=== PATIENT | male | born 1955 | race Caucasian/White ===

== ENCOUNTER 2017-11-22 15:25 | Outpatient (CLI) | payer OTHER | END 2017-11-22 15:26 | disposition home or self-care (01) | LOC: BICULT 15:25 | PROVIDERS: ATTEND Internal Medicine Infectious Disease | DX: R32 Unspecified urinary incontinence (principal) | CPT/HCPCS: 76856 ==

== ENCOUNTER 2019-12-11 09:50 | Day surgery (SDC) | payer OTHER ==
[~2019-12-11 09:50] MED LIST: Atropine Sulfate 0.25 MG in Sodium Chloride 0.9% 50 ML IVPB SCH; Fluorouracil 900 MG in Sodium Chloride 0.9% 50 ML IVPB SCH; Irinotecan 300 MG in Sodium Chloride 0.9% 500 ML IVPB SCH; Leucovorin Calcium 50 MG in Sodium Chloride 0.9% 500 ML IVPB SCH; Palonosetron HCl 0.25 MG in Sodium Chloride 0.9% 50 ML IVPB SCH; Sodium Chloride 0.9% 20 ML ONE
[2019-12-11 11:34] VITALS: BP 149/69; TEMP 97.9
== END 2019-12-11 15:01 | disposition home or self-care (01) ==
LOC: ONC/OP 09:50
PROVIDERS: ATTEND Internal Medicine Hematology & Oncology
DX: Z51.11 Encounter for antineoplastic chemotherapy (principal); C20 Malignant neoplasm of rectum; Z88.0 Allergy status to penicillin
CPT/HCPCS: 36415; 80053; 82248; 82378; 83615; 84100; 84550; 96367; 96375; 96413; 96417; J0461; J0640; J1100; J2469; J7050; J9190; J9206

== ENCOUNTER 2020-01-01 10:12 | Day surgery (SDC) | payer OTHER ==
[~2020-01-01 10:12] MED LIST changes: -Sodium Chloride 0.9% 20 ML ONE
[2020-01-01] MEDS ORDERED: Sodium Chloride 0.9% 20 ML ONE ×2 (10:28→10:36)
[2020-01-01 11:36] VITALS: BP 179/77; TEMP 98.5
[2020-01-01] MEDS ORDERED: FLU VACC QS2019-20(6MOS UP)/PF 60 MCG/0.5 ML SYRINGE IM ONE (12:45)
== END 2020-01-01 15:41 | disposition home or self-care (01) ==
LOC: ONC/OP 10:12
PROVIDERS: ATTEND Internal Medicine Hematology & Oncology
DX: Z51.11 Encounter for antineoplastic chemotherapy (principal); C20 Malignant neoplasm of rectum; Z88.0 Allergy status to penicillin
CPT/HCPCS: 96367; 96375; 96413; 96415; 96416; J0461; J0640; J1100; J2469; J7050; J9190; J9206

== ENCOUNTER 2020-01-22 09:31 | Day surgery (SDC) | payer OTHER ==
[2020-01-22] MEDS ORDERED: Sodium Chloride 0.9% 20 ML ONE (09:40)
[2020-01-22 10:05] VITALS: BP 96/51; TEMP 97.6
[2020-01-22] MEDS ORDERED: Sodium Chloride 0.9% 10 ML ONE (11:55)
== END 2020-01-22 13:45 | disposition home or self-care (01) ==
LOC: ONC/OP 09:31
PROVIDERS: ATTEND Internal Medicine Hematology & Oncology
DX: Z51.11 Encounter for antineoplastic chemotherapy (principal); C20 Malignant neoplasm of rectum; Z88.0 Allergy status to penicillin
CPT/HCPCS: 36415; 80053; 82248; 82378; 83615; 84100; 84550; 96367; 96375; 96413; 96416; 96417; J0461; J0640; J1100; J2469; J7030; J9190; J9206

== ENCOUNTER 2020-02-19 08:56 | Day surgery (SDC) | payer OTHER ==
[2020-02-19] MEDS ORDERED: Sodium Chloride 0.9% 20 ML ONE (09:20)
[2020-02-19 10:25] VITALS: BP 178/84; TEMP 97.8
== END 2020-02-19 13:55 | disposition home or self-care (01) ==
LOC: ONC/OP 08:56
PROVIDERS: ATTEND Internal Medicine Hematology & Oncology
DX: Z51.11 Encounter for antineoplastic chemotherapy (principal); C20 Malignant neoplasm of rectum; Z88.0 Allergy status to penicillin
CPT/HCPCS: 96367; 96375; 96413; 96415; 96416; 96417; J0461; J0640; J1100; J2469; J7030; J9190; J9206

== ENCOUNTER 2020-03-04 10:41 | Day surgery (SDC) | payer OTHER ==
[2020-03-04] MEDS ORDERED: Sodium Chloride 0.9% 30 ML ONE (11:05)
[2020-03-04 11:09] VITALS: BP 171/85; TEMP 98.5
== END 2020-03-04 17:02 | disposition home or self-care (01) ==
LOC: ONC/OP 10:41
PROVIDERS: ATTEND Internal Medicine Hematology & Oncology
DX: Z51.11 Encounter for antineoplastic chemotherapy (principal); C20 Malignant neoplasm of rectum; Z88.0 Allergy status to penicillin
CPT/HCPCS: 96367; 96375; 96413; 96416; 96417; J0461; J0640; J1100; J1642; J2469; J7030; J9190; J9206

== ENCOUNTER 2020-03-25 09:53 | Day surgery (SDC) | payer OTHER ==
[2020-03-25] MEDS ORDERED: Sodium Chloride 0.9% 20 ML ONE ×2 (10:08→11:01)
== END 2020-03-25 13:40 | disposition home or self-care (01) ==
LOC: ONC/OP 09:53
PROVIDERS: ATTEND Internal Medicine Hematology & Oncology
DX: Z51.11 Encounter for antineoplastic chemotherapy (principal); C20 Malignant neoplasm of rectum; Z79.84 Long term (current) use of oral hypoglycemic drugs; Z79.899 Other long term (current) drug therapy; Z88.0 Allergy status to penicillin
CPT/HCPCS: 80053; 82248; 82378; 83615; 84100; 84550; 96367; 96375; 96413; 96415; 96416; 96417; J0461; J0640; J1100; J2469; J7030; J9190; J9206

== ENCOUNTER 2020-04-21 09:38 | Day surgery (SDC) | payer OTHER ==
[2020-04-21] MEDS ORDERED: Sodium Chloride 0.9% 20 ML ONE (09:45)
== END 2020-04-21 13:02 | disposition home or self-care (01) ==
LOC: ONC/OP 09:38
PROVIDERS: ATTEND Internal Medicine Hematology & Oncology
DX: Z51.11 Encounter for antineoplastic chemotherapy (principal); C20 Malignant neoplasm of rectum; Z88.0 Allergy status to penicillin
CPT/HCPCS: 96367; 96375; 96413; 96415; 96416; 96417; J0461; J0640; J1100; J2469; J7030; J9190; J9206

== ENCOUNTER 2020-05-20 09:06 | Day surgery (SDC) | payer OTHER ==
[~2020-05-20 09:06] MED LIST changes: +Fluorouracil 700 MG in Sodium Chloride 0.9% 50 ML IVPB SCH; -Fluorouracil 900 MG in Sodium Chloride 0.9% 50 ML IVPB SCH; +IRINOTECAN IVPB SCH; -Irinotecan 300 MG in Sodium Chloride 0.9% 500 ML IVPB SCH; +SODIUM CHLORIDE 0.9% IVPB SCH
[2020-05-20] MEDS ORDERED: Sodium Chloride 0.9% 20 ML ONE (09:08)
[2020-05-20 09:37] VITALS: BP 120/63; TEMP 98.3
== END 2020-05-20 13:19 | disposition home or self-care (01) ==
LOC: ONC/OP 09:06
PROVIDERS: ATTEND Internal Medicine Hematology & Oncology
DX: Z51.11 Encounter for antineoplastic chemotherapy (principal); C20 Malignant neoplasm of rectum; Z88.0 Allergy status to penicillin
CPT/HCPCS: 96367; 96375; 96413; 96415; 96417; J0461; J0640; J1100; J2469; J7030; J9190; J9206

== ENCOUNTER 2020-06-10 10:14 | Day surgery (SDC) | payer OTHER | END 2020-06-10 14:37 | disposition home or self-care (01) | LOC: ONC/OP 10:14 | PROVIDERS: ATTEND Internal Medicine Hematology & Oncology | DX: Z51.11 Encounter for antineoplastic chemotherapy (principal); C20 Malignant neoplasm of rectum; Z88.0 Allergy status to penicillin | CPT/HCPCS: 36415; 80053; 82248; 82378; 83615; 84100; 84550; 96367; 96375; 96413; 96415; 96416; 96417; J0461; J0640; J1100; J2469; J7030; J9190; J9206 ==